=== PATIENT | male | born 1985 | race Caucasian/White ===

== ENCOUNTER 2017-07-10 20:25 | Emergency (ER) | payer MEDICAID, OTHER ==
[2017-07-10 20:32] VITALS: BP 130/73; PULSE 100; RESP 16; TEMP 98.1; O2SAT 95
--- NOTE | 2017-07-10 20:43 | EDPHY ---
HPI/HX/ROS/PE/MDM Narrative: CHIEF COMPLAINT: Rash HISTORY OF PRESENT ILLNESS: This patient is a 32 year old male complaining of a rash or bites on his arms developing over the last week. They have seemed to develop in several waves. He has many areas of raised red skin over his body including his neck which feel very itchy. He has tried hydrocortisone cream for relief. He denies any recent travel. He was recently released from assisted and has [facility] staying at the [facility] , and is concerned regarding bedbugs. He denies fever, chills, chest pain, shortness of breath, palpitations, vomiting, diarrhea, urinary complaints, headache, lightheadedness. He has no further complaints. REVIEW OF SYSTEMS: Aside from elements discussed in the HPI, a comprehensive 10-point review of systems was reviewed and is negative. PAST MEDICAL HISTORY: Denies SOCIAL HISTORY: Recently discharged from assisted. Staying at the [facility]. Single. VITAL SIGNS: Reviewed by me GENERAL: Well-developed, well-nourished, resting comfortably in no respiratory distress. HEENT: Atraumatic. Eyes: PERRL, EOMI. No icterus, no injection. Mouth: moist mucous membranes. No erythema or lesions. Neck: supple with no adenopathy. LUNGS: Clear to auscultation bilaterally, no wheezes, rhonchi or rales. CARDIAC: Regular rate and rhythm, no rubs, murmurs or gallops. ABDOMEN: Soft, nontender, nondistended, bowel sounds normal. EXTREMITIES: No trauma. No edema. Range of motion is normal throughout. NEURO: Alert and oriented, grossly nonfocal. SKIN: Widespread rash with half to 1 cm in diameter papular and pustular erythematous lesions, areas of excoriation. No purulence seen. Some of the lesions appear to be in linear distress chin. Rashes moved problem on arms, legs, trunk, and ankles. Warm and dry. Several lesions of the patient's chin and in his buckley have a pustular component. PSYCHIATRIC: Normal mentation, no agitation. Portions of this note were transcribed by a medical practice administrator. I personally performed a history, physical exam, medical decision making, and confirmed accuracy of information the transcribed note. ED Course: 32 year old male presents with discrete excoriated maculopapular pustular looking lesions on extremities, underneath chin, and along jawline. Consistent with bedbug bites. Plan to discharge home in good condition with prescription for Keflex to prevent infection at the bite sites. Discussed use of over the counter Benadryl and/or Florencia, and Benadryl cream for symptom relief. Follow up and return precautions discussed. He is comfortable with this plan. MDM: Differential diagnosis of the patient's rash was considered including but not limited to allergic reaction, urticaria, viral exanthem, erythema multiforme, fleas, scabies, lice, bed bugs, insect bites, folliculitis, cellulitis, or purpuric rash. - Data Points Medications Given: Discontinued Medications Cephalexin HCl (Keflex) 500 mg PO EDNOW ONE PRN Reason: Protocol Stop: 07/10/17 20:49 Last Admin: 07/10/17 21:04 Dose: 500 mg Diphenhydramine HCl (Benadryl) 25 mg PO EDNOW ONE Stop: 07/10/17 20:46 Last Admin: 07/10/17 21:05 Dose: 25 mg General Time Seen by Provider: 07/10/17 20:36 Initial Vital Signs: Initial Vital Signs Temperature (C) 36.7 C 07/10/17 20:29 Heart Rate 100 07/10/17 20:29 Respiratory Rate 16 07/10/17 20:29 Blood Pressure 130/73 H 07/10/17 20:29 O2 Sat (%) 95 07/10/17 20:29 O2 Delivery Mode Room Air Allergies/Adverse Reactions: No Known Allergies Allergy (Verified 07/10/17 20:32) Home Medications: Medication Instructions Recorded Cephalexin [Keflex (RX)] 500 mg PO QID 7 Days cap 07/10/17 Meloxicam 07/10/17 Departure - Departure Disposition: Home, Routine, Self-Care Clinical Impression: Rash and nonspecific skin eruption Bedbug bite Qualifiers: Encounter type: initial encounter Qualified Code(s): W57.XXXA - Bitten or stung by nonvenomous insect and other nonvenomous arthropods, initial encounter Condition: Good Instructions: Cephalexin (By mouth), Insect Bite or Sting (ED) Additional Instructions: 1. Take Benadryl 25mg every 8 hours. If this makes you drowsy, you may also use Florencia or similar medications. These are available over the counter. 2. Apply Benadryl cream to your rash. 3. Take Keflex as prescribed. It is important to finish your entire course of antibiotics even if you are feeling ebter. 4. Wash all your clothing and dry on the hottest setting. 5. Follow up with a primary care provider for continued evaluation. 6. Return to the emergency department for increased redness, swelling, or discharge or warmth from your bites or if you develop fever, vomiting, or other worsening of condition. Referrals: [facility],. [Clinic] - As per Instructions Patricia Fonseca MD [Medical Doctor] - As per Instructions Prescriptions: Cephalexin [Keflex (RX)] 500 mg PO QID 7 Days cap Report Scribed for: Elke Lopez Report Scribed by: Patricia Sarmiento Date of Report: 07/10/17 Time of Report: 20:51
--- NOTE | 2017-07-10 20:43 | EDPHY ---
HPI/HX/ROS/PE/MDM Narrative: CHIEF COMPLAINT: Rash HISTORY OF PRESENT ILLNESS: This patient is a 32 year old male complaining of a rash or bites on his arms developing over the last week. They have seemed to develop in several waves. He has many areas of raised red skin over his body including his neck which feel very itchy. He has tried hydrocortisone cream for relief. He denies any recent travel. He was recently released from long-term and has [facility] staying at the [facility] , and is concerned regarding bedbugs. He denies fever, chills, chest pain, shortness of breath, palpitations, vomiting, diarrhea, urinary complaints, headache, lightheadedness. He has no further complaints. REVIEW OF SYSTEMS: Aside from elements discussed in the HPI, a comprehensive 10-point review of systems was reviewed and is negative. PAST MEDICAL HISTORY: Denies SOCIAL HISTORY: Recently discharged from long-term. Staying at the nursing home. Single. VITAL SIGNS: Reviewed by me GENERAL: Well-developed, well-nourished, resting comfortably in no respiratory distress. HEENT: Atraumatic. Eyes: PERRL, EOMI. No icterus, no injection. Mouth: moist mucous membranes. No erythema or lesions. Neck: supple with no adenopathy. LUNGS: Clear to auscultation bilaterally, no wheezes, rhonchi or rales. CARDIAC: Regular rate and rhythm, no rubs, murmurs or gallops. ABDOMEN: Soft, nontender, nondistended, bowel sounds normal. EXTREMITIES: No trauma. No edema. Range of motion is normal throughout. NEURO: Alert and oriented, grossly nonfocal. SKIN: Widespread rash with half to 1 cm in diameter papular and pustular erythematous lesions, areas of excoriation. No purulence seen. Some of the lesions appear to be in linear distress chin. Rashes moved problem on arms, legs, trunk, and ankles. Warm and dry. Several lesions of the patient's chin and in his buckley have a pustular component. PSYCHIATRIC: Normal mentation, no agitation. Portions of this note were transcribed by a senior medical technologist. I personally performed a history, physical exam, medical decision making, and confirmed accuracy of information the transcribed note. ED Course: 32 year old male presents with discrete excoriated maculopapular pustular looking lesions on extremities, underneath chin, and along jawline. Consistent with bedbug bites. Plan to discharge home in good condition with prescription for Keflex to prevent infection at the bite sites. Discussed use of over the counter Benadryl and/or Florencia, and Benadryl cream for symptom relief. Follow up and return precautions discussed. He is comfortable with this plan. MDM: Differential diagnosis of the patient's rash was considered including but not limited to allergic reaction, urticaria, viral exanthem, erythema multiforme, fleas, scabies, lice, bed bugs, insect bites, folliculitis, cellulitis, or purpuric rash. - Data Points Medications Given: Discontinued Medications Cephalexin HCl (Keflex) 500 mg PO EDNOW ONE PRN Reason: Protocol Stop: 07/10/17 20:49 Last Admin: 07/10/17 21:04 Dose: 500 mg Diphenhydramine HCl (Benadryl) 25 mg PO EDNOW ONE Stop: 07/10/17 20:46 Last Admin: 07/10/17 21:05 Dose: 25 mg General Time Seen by Provider: 07/10/17 20:36 Initial Vital Signs: Initial Vital Signs Temperature (C) 36.7 C 07/10/17 20:29 Heart Rate 100 07/10/17 20:29 Respiratory Rate 16 07/10/17 20:29 Blood Pressure 130/73 H 07/10/17 20:29 O2 Sat (%) 95 07/10/17 20:29 O2 Delivery Mode Room Air Allergies/Adverse Reactions: No Known Allergies Allergy (Verified 07/10/17 20:32) Home Medications: Medication Instructions Recorded Cephalexin [Keflex (RX)] 500 mg PO QID 7 Days cap 07/10/17 Meloxicam 07/10/17 Departure - Departure Disposition: Home, Routine, Self-Care Clinical Impression: Rash and nonspecific skin eruption Bedbug bite Qualifiers: Encounter type: initial encounter Qualified Code(s): W57.XXXA - Bitten or stung by nonvenomous insect and other nonvenomous arthropods, initial encounter Condition: Good Instructions: Cephalexin (By mouth), Insect Bite or Sting (ED) Additional Instructions: 1. Take Benadryl 25mg every 8 hours. If this makes you drowsy, you may also use Florencia or similar medications. These are available over the counter. 2. Apply Benadryl cream to your rash. 3. Take Keflex as prescribed. It is important to finish your entire course of antibiotics even if you are feeling ebter. 4. Wash all your clothing and dry on the hottest setting. 5. Follow up with a primary care provider for continued evaluation. 6. Return to the emergency department for increased redness, swelling, or discharge or warmth from your bites or if you develop fever, vomiting, or other worsening of condition. Referrals: [facility],. [Clinic] - As per Instructions Patricia Fonseca MD [Medical Doctor] - As per Instructions Prescriptions: Cephalexin [Keflex (RX)] 500 mg PO QID 7 Days cap Report Scribed for: Elke Lopez Report Scribed by: Patricia Sarmiento Date of Report: 07/10/17 Time of Report: 20:51
--- NOTE | 2017-07-10 20:43 | EDPHY ---
HPI/HX/ROS/PE/MDM Narrative: CHIEF COMPLAINT: Rash HISTORY OF PRESENT ILLNESS: This patient is a 32 year old male complaining of a rash or bites on his arms developing over the last week. They have seemed to develop in several waves. He has many areas of raised red skin over his body including his neck which feel very itchy. He has tried hydrocortisone cream for relief. He denies any recent travel. He was recently [facility] from [facility] and [facility] , and is concerned regarding bedbugs. He denies fever, chills, chest pain, shortness of breath, palpitations, vomiting, diarrhea, urinary complaints, headache, lightheadedness. He has no further complaints. REVIEW OF SYSTEMS: Aside from elements discussed in the HPI, a comprehensive 10-point review of systems was reviewed and is negative. PAST MEDICAL HISTORY: Denies SOCIAL HISTORY: Recently discharged from [facility]. Staying at the [facility]. Single. VITAL SIGNS: Reviewed by me GENERAL: Well-developed, well-nourished, resting comfortably in no respiratory distress. HEENT: Atraumatic. Eyes: PERRL, EOMI. No icterus, no injection. Mouth: moist mucous membranes. No erythema or lesions. Neck: supple with no adenopathy. LUNGS: Clear to auscultation bilaterally, no wheezes, rhonchi or rales. CARDIAC: Regular rate and rhythm, no rubs, murmurs or gallops. ABDOMEN: Soft, nontender, nondistended, bowel sounds normal. EXTREMITIES: No trauma. No edema. Range of motion is normal throughout. NEURO: Alert and oriented, grossly nonfocal. SKIN: Widespread rash with half to 1 cm in diameter papular and pustular erythematous lesions, areas of excoriation. No purulence seen. Some of the lesions appear to be in linear distress chin. Rashes moved problem on arms, legs, trunk, and ankles. Warm and dry. Several lesions of the patient's chin and in his buckley have a pustular component. PSYCHIATRIC: Normal mentation, no agitation. Portions of this note were transcribed by a registered medical transcriptionist. I personally performed a history, physical exam, medical decision making, and confirmed accuracy of information the transcribed note. ED Course: 32 year old male presents with discrete excoriated maculopapular pustular looking lesions on extremities, underneath chin, and along jawline. Consistent with bedbug bites. Plan to discharge home in good condition with prescription for Keflex to prevent infection at the bite sites. Discussed use of over the counter Benadryl and/or Florencia, and Benadryl cream for symptom relief. Follow up and return precautions discussed. He is comfortable with this plan. MDM: Differential diagnosis of the patient's rash was considered including but not limited to allergic reaction, urticaria, viral exanthem, erythema multiforme, fleas, scabies, lice, bed bugs, insect bites, folliculitis, cellulitis, or purpuric rash. - Data Points Medications Given: Discontinued Medications Cephalexin HCl (Keflex) 500 mg PO EDNOW ONE PRN Reason: Protocol Stop: 07/10/17 20:49 Last Admin: 07/10/17 21:04 Dose: 500 mg Diphenhydramine HCl (Benadryl) 25 mg PO EDNOW ONE Stop: 07/10/17 20:46 Last Admin: 07/10/17 21:05 Dose: 25 mg General Time Seen by Provider: 07/10/17 20:36 Initial Vital Signs: Initial Vital Signs Temperature (C) 36.7 C 07/10/17 20:29 Heart Rate 100 07/10/17 20:29 Respiratory Rate 16 07/10/17 20:29 Blood Pressure 130/73 H 07/10/17 20:29 O2 Sat (%) 95 07/10/17 20:29 O2 Delivery Mode Room Air Allergies/Adverse Reactions: No Known Allergies Allergy (Verified 07/10/17 20:32) Home Medications: Medication Instructions Recorded Cephalexin [Keflex (RX)] 500 mg PO QID 7 Days cap 07/10/17 Meloxicam 07/10/17 Departure - Departure Disposition: Home, Routine, Self-Care Clinical Impression: Rash and nonspecific skin eruption Bedbug bite Qualifiers: Encounter type: initial encounter Qualified Code(s): W57.XXXA - Bitten or stung by nonvenomous insect and other nonvenomous arthropods, initial encounter Condition: Good Instructions: Cephalexin (By mouth), Insect Bite or Sting (ED) Additional Instructions: 1. Take Benadryl 25mg every 8 hours. If this makes you drowsy, you may also use Florencia or similar medications. These are available over the counter. 2. Apply Benadryl cream to your rash. 3. Take Keflex as prescribed. It is important to finish your entire course of antibiotics even if you are feeling ebter. 4. Wash all your clothing and dry on the hottest setting. 5. Follow up with a primary care provider for continued evaluation. 6. Return to the emergency department for increased redness, swelling, or discharge or warmth from your bites or if you develop fever, vomiting, or other worsening of condition. Referrals: [facility],. [Clinic] - As per Instructions Patricia Fonseca MD [Medical Doctor] - As per Instructions Prescriptions: Cephalexin [Keflex (RX)] 500 mg PO QID 7 Days cap Report Scribed for: Elke Lopez Report Scribed by: Patricia Sarmiento Date of Report: 07/10/17 Time of Report: 20:51
[2017-07-10] MEDS ORDERED: diphenhydrAMINE 25 MG CAP PO ONE ×2 (20:45)
[2017-07-10] MEDS ORDERED: CEPHALEXIN 500 MG CAP PO ONE ×2 (20:48)
== END 2017-07-10 21:10 | disposition home or self-care (01) ==
DX: R21 Rash and other nonspecific skin eruption (principal); W57.XXXA Bitten or stung by nonvenomous insect and other nonvenomous arthropods, initial encounter